=== PATIENT | female | born 1950 | race Caucasian/White ===

== ENCOUNTER 2020-09-13 14:44 | Observation (INO) | payer MEDICARE ==
[2020-09-13] MEDS ORDERED: ONDANSETRON 4 MG/2 ML VIAL IVP PRN (15:30)
[2020-09-13] MEDS ORDERED: NALOXONE 0.4 MG/ML 1 ML VIAL IV PRN (15:30)
[2020-09-13] MEDS ORDERED: MORPHINE SULFATE 2 MG/ML SYRINGE IV PRN (15:30)
--- NOTE | 2020-09-13 15:30 | ED ---
Abdominal Pain HPI - General Chief Complaint: Abdominal Pain Stated Complaint: Abd pain Time Seen by Provider: 09/13/20 14:47 Source: patient, EMS Mode of arrival: EMS Limitations: no limitations - History of Present Illness Initial Comments: Patient is a 69-year-old female with history hypertension, COPD, presenting to the emergency Department as a transfer from [facility]. She states that she woke up early this morning with complaints of right-sided abdominal pain and epigastric pain. She states the pain was very severe and so she went to the ER for evaluation. She did have a bowel movement today, no relief of her symptoms. She denies any fever or chills, no urinary symptoms. She denies any chest pain or shortness of breath. She states she did try some Pepto-Bismol at home with no relief. Patient had some lab work, computed tomography scan and [facility], she was given IV fluids, Flagyl and Levaquin and was transferred here for GI. Currently patient states her pain has increased, 8/10 at this time. She denies any nausea or vomiting. She has no further complaints at this time. Upon arrival to the ER, her vital signs are stable. - Related Data Home Medications Medication Instructions Recorded Confirmed Aspirin [Adult Low Dose Aspirin EC] 81 mg PO DAILY 04/21/16 09/13/20 Fluticasone Nasal [place] [Flonase 1 spray EA NOSTRIL DAILY PRN 04/21/16 09/13/20 Nasal [place]] Multivitamins, Thera [Multivitamin 1 tab PO DAILY 04/21/16 09/13/20 (formulary)] Omeprazole [PriLOSEC] 20 mg PO DAILY 04/21/16 09/13/20 Vits A,C,E/Lutein/Minerals 1 tab PO DAILY 04/21/16 09/13/20 [Ocuvite with Lutein Tablet] Albuterol Sulfate [Ventolin HFA] 2 puff INHALATION RT-QID PRN 09/13/20 09/13/20 Calcium Carbonate/Vitamin D3 1 tab PO DAILY 09/13/20 09/13/20 [Calcium 600-Vit D3 20 Mcg (800 Iu)] Docusate [Colace] 100 mg PO HS 09/13/20 09/13/20 Furosemide [Lasix] 40 mg PO DAILY 09/13/20 09/13/20 Isosorbide Mononitrate ER [Imdur] 30 mg PO DAILY 09/13/20 09/13/20 Levothyroxine Sodium [Synthroid] 75 mcg PO DAILY 09/13/20 09/13/20 Metoprolol Succinate (ER) [Toprol 100 mg PO DAILY 09/13/20 09/13/20 Xl] Simvastatin [Zocor] 20 mg PO HS 09/13/20 09/13/20 amLODIPine [Norvasc] 5 mg PO DAILY 09/13/20 09/13/20 methocarbamoL [Robaxin] 500 mg PO BID 09/13/20 09/13/20 Allergies Allergy/AdvReac Type Severity Reaction Status Date / Time Milk Containing Products Allergy CREATES Verified 09/13/20 15:45 [Dairy] PHLEGM Sulfa (Sulfonamide Allergy Anaphylaxis Verified 09/13/20 15:45 Antibiotics) Review of Systems ROS Statement: Those systems with pertinent positive or pertinent negative responses have been documented in the HPI. ROS Other: All systems not noted in ROS Statement are negative. Past Medical History Past Medical History: Asthma, COPD, Eye Disorder, Hypertension, Pneumonia Additional Past Medical History / Comment(s): Diverticulosis, obesity, neuropathy L shoulder, ALLERGIC rhinitis, chronic back pain, peripheral vascular disease. History of Any Multi-Drug Resistant Organisms: None Reported Past Surgical History: Bowel Resection, Cholecystectomy, Hysterectomy Additional Past Surgical History / Comment(s): R cataract Past Anesthesia/Blood Transfusion Reactions: No Reported Reaction Past Psychological History: No Psychological Hx Reported Smoking Status: Former smoker Past Alcohol Use History: None Reported Past Drug Use History: None Reported - Past Family History Mother Family Medical History: Cancer Additional Family Medical History / Comment(s): stomach cancer General Exam - General Exam Comments Initial Comments: GENERAL: Patient is well-developed and well-nourished. Patient is nontoxic and in mild distress. HEAD: Atraumatic, normocephalic. EYES: Pupils equal round and reactive to light, extraocular movements intact, sclera anicteric, conjunctiva are normal. Eyelids were unremarkable. ENT: TMs normal, nares patent, oropharynx clear without exudates. Moist mucous membranes. NECK: Normal range of motion, supple without lymphadenopathy or JVD. LUNGS: Unlabored respirations. Breath sounds clear to auscultation bilaterally and equal. No wheezes rales or rhonchi. HEART: Regular rate and rhythm without murmurs, rubs or gallops. ABDOMEN: Soft, tender in the right side of the abdomen, epigastric area normoactive bowel sounds. No guarding, no rebound. No masses appreciated. : Deferred MUSCULOSKELETAL: Normal extremities with adequate strength and normal range of motion, no pitting or edema. No clubbing or cyanosis. NEUROLOGICAL: Patient is alert and oriented x 3. Motor and sensory are also intact. Cranial nerves II through XII grossly intact. Symmetrical smile. Normal speech, normal gait. PSYCH: Normal mood, normal affect. SKIN: Warm, Dry, normal turgor, no rashes or lesions noted. Limitations: no limitations Course Vital Signs 09/13/20 14:47 Temperature 98 F Pulse Rate 94 Respiratory 18 Rate Blood Pressure 172/65 O2 Sat by Pulse 95 Oximetry Medical Decision Making - Medical Decision Making Patient is a 69-year-old female with history of hypertension, COPD, presenting as a transfer from [facility]. She presented there with epigastric pain, abdominal pain started suddenly this morning. Her labs revealed mildly elevated WBC and lactate. Urine shows no signs of infection. EKG showed sinus rhythm no acute changes. CT of the abdomen showed diffuse thickening of the ascending colon and hepatic flexure, findings compatible with colitis. Diverticulosis without acute diverticulitis. Patient was given IV fluids, Flagyl and Levaquin. Patient will be admitted for colitis, antibiotics, pain control, GI referral. Patient accepted by Dr. Soni. Case discussed with Dr. Riley. Disposition Clinical Impression: Abdominal pain, Colitis Disposition: ADMITTED IP TO THIS HOSP Condition: Stable Decision Date: 09/13/20 Decision Time: 15:30
[2020-09-13] MEDS ORDERED: MORPHINE SULFATE 4 MG/ML SYRINGE IVP STA (15:34)
[2020-09-13] MEDS: SODIUM CHLORIDE 0.9% 1,000 ML IV SCH (15:45)
[2020-09-13] MEDS: PANTOPRAZOLE 40 MG/10 ML VIAL IV SCH (16:51)
[2020-09-13] MEDS ORDERED: ALBUTEROL NEBULIZED 2.5 MG/3 ML INHALATION PRN (18:06)
[2020-09-13] MEDS ORDERED: HYDROmorphone 0.5 MG/0.5 ML SYRINGE IVP PRN (18:11)
--- NOTE | 2020-09-13 18:45 | HP ---
HISTORY AND PHYSICAL DATE OF SERVICE: 09/13/2020. CHIEF COMPLAINT: Abdominal pain and some nausea, vomiting and abdominal distention. HISTORY OF PRESENT ILLNESS: This 69-year-old women with a past medical history of asthma, COPD, hypertension, history of pneumonia, diverticulosis, history of neuropathy left shoulder, being followed by Dr. Polo in the outpatient setting, who actually woke up this morning with severe nausea, vomiting, and right-sided abdominal pain which started overnight sometime. The patient went to [facility] and CT scan showed extensive colitis of the hepatic flexure and ascending colon and the patient was referred to [facility] and was admitted for further evaluation and treatment. There is no history of fever, rigors or chills. No history of headache, loss of consciousness or seizures at this time. PAST MEDICAL HISTORY: Asthma, COPD, DJD, hypertension, history of pneumonia, diverticulosis. MEDICATIONS: Home medications are: Robaxin 500 mg p.o. b.i.d., Norvasc, Ocuvite, Zocor, Prilosec, multivitamin, Toprol-XL. Synthroid, Imdur, Lasix, Flonase, Colace, calcium with vitamin D, aspirin, Ventolin HFA. ALLERGIES: MILK CONTAINING PRODUCTS and SULFA. FAMILY HISTORY: History of skin cancers, history of stomach cancer in the family. SOCIAL HISTORY: Previous history of smoking. No history of alcohol intake. REVIEW OF SYSTEMS: ENT: No diminished vision. No diminished hearing. CARDIOVASCULAR: No angina. RESPIRATION: No cough or hemoptysis. GI as mentioned earlier. : No dysuria. NERVOUS SYSTEM: No numbness or weakness. ALLERGY/IMMUNOLOGY: No asthma or hayfever. MUSCULOSKELETAL as mentioned earlier. HEMATOLOGY/ONCOLOGY: As mentioned earlier. ENDOCRINE: As mentioned earlier. CONSTITUTIONAL: As mentioned earlier. DERMATOLOGY: Negative. RHEUMATOLOGY negative. PSYCHIATRY as mentioned earlier. PHYSICAL EXAMINATION: Alert and oriented x3. Pulse is 99. Blood pressure 169/65, respiration 18, temperature 98.2, pulse ox 98% on room air. HEENT is conjunctivae normal. NECK: No JVD. CARDIOVASCULAR: S1, S2 muffled. No S3, No S4. RESPIRATORY: Breath sounds diminished in the bases. Scattered rhonchi and crackles. ABDOMEN: Soft, obese mild diffuse tenderness in the right side of the abdomen. No guarding. No rigidity. No rebound tenderness. Pulses diminished. No ascites. No mass palpable. LEGS: No edema, no swelling. NERVOUS SYSTEM: Higher functions as mentioned earlier. Moves all 4 limbs. No focal motor or sensory deficits. LYMPHATICS: No lymph nodes palpable in the neck, axillae or groin. SKIN: No ulcer, no rash and no bleeding. JOINTS: No active deforming arthropathy. LABS: The current labs are awaited. ASSESSMENT: 1. Severe abdominal pain with acute colitis, ascending colon, hepatic flexure. 2. History of asthma. 3. History of chronic obstructive pulmonary disease. 4. History of hypertension. 5. History of pneumonia. 6. History of diverticulosis. 7. History of allergic rhinitis. 8. Chronic back pain. 9. Peripheral vascular disease. 10.History of cholecystectomy. 11.History of bowel resection. 12.History of hysterectomy. 13.Remote history of nicotine dependence. RECOMMENDATIONS/DISCUSSION: In this 69-year-old woman who presented with multiple complex medical issues, we will monitor the patient closely, continue the current medications, management and symptomatic treatment. Resume the home medications, broad-spectrum IV antibiotics. Gastroenterology, surgical evaluation. Prognosis guarded because of multiple complex medical issues. Further recommendations to follow. A copy of dictation is being forwarded to Dr. Polo who is the primary physician. MAMIE / DIMITRIS: [id number] /
[2020-09-13 19:27] LABS: ALT 31 U/L (4-34); AST 35 U/L (14-36); African American GFR (CKD) >90 (>60 ml/min/1.73 sqM); Albumin 4.1 g/dL (3.5-5.0); Alkaline Phosphatase 73 U/L (38-126); Anion Gap 10 mmol/L; Blood Urea Nitrogen 10 mg/dL (7-17); Calcium 8.9 mg/dL (8.4-10.2); Carbon Dioxide 28 mmol/L (22-30); Chloride 102 mmol/L (98-107); Glucose 111 mg/dL (74-99); Non-African American GFR(CKD) >90 (>60 ml/min/1.73 sqM); Sodium 140 mmol/L (137-145); Total Protein 6.5 g/dL (6.3-8.2)
--- NOTE | 2020-09-13 20:04 | XR ---
EXAMINATION: XR chest 1V portable DATE AND TIME: 09/13/2020 7:48 PM CLINICAL INDICATION: PHH; chf, pain abdominal TECHNIQUE: AP upright portable COMPARISON: 04/24/1960 FINDINGS: The overlying soft tissues are prominent, limiting visualization. Lungs appear clear, as seen. The pleural spaces are negative. The cardiac silhouette is not enlarged. The remainder of the mediastinal silhouette is unremarkable. The skeletal structures and soft tissues are negative for acute findings. IMPRESSION: No acute radiographic process, AP upright portable chest radiograph.
[2020-09-13] MEDS: methocarbamoL 500 MG TAB PO SCH (20:57)
[2020-09-13] MEDS: ATORVASTATIN 10 MG TAB PO SCH (20:57)
[2020-09-13 20:58] LABS: Appearance,Urine Clear (Clear); Bilirubin,Urine Negative (Negative); Blood,Urine Small (Negative); Color,Urine Yellow; Glucose,Urine (UA) Negative (Negative); Ketones,Urine Negative (Negative); Leukocyte Esterase,Urine Negative (Negative); Mucus,Urine Rare /hpf; Nitrite,Urine Negative (Negative); Protein,Urine Trace (Negative); RBC,Urine 5 /hpf (0-5); Specific Gravity,Urine 1.038 (1.001-1.035); Squamous Epithelial Cell,Urine <1 /hpf (0-4); Urobilinogen,Urine <2.0 mg/dL (<2.0); WBC,Urine 2 /hpf (0-5)
[2020-09-13] MEDS: HEPARIN SODIUM,PORCINE 5,000 UNIT/ML 1 ML VIAL SQ SCH (20:58)
[2020-09-13] MEDS: ISOSORBIDE MONONITRATE ER 30 MG TAB.ER.24H PO SCH (21:18)
[2020-09-13] MEDS: METOPROLOL SUCCINATE (ER) 100 MG TAB.ER.24H PO SCH (21:18)
[2020-09-13] MEDS: PIPERACILLIN-TAZOBACTAM 3.375 GM in SODIUM CHLORIDE 0.9% 100 ML IVPB SCH (22:10)
[2020-09-14] MEDS ORDERED: diphenhydrAMINE 50 MG/ML 1 ML VIAL IVP PRN (00:34)
[2020-09-14 01:07] LABS: Glucose,Whole Blood 151 mg/dL (75-99)
[2020-09-14] MEDS: PIPERACILLIN-TAZOBACTAM 3.375 GM in SODIUM CHLORIDE 0.9% 100 ML IVPB SCH (04:12)
[2020-09-14] MEDS: LEVOTHYROXINE 75 MCG TAB PO SCH (06:49)
[2020-09-14 06:52] LABS: Basophils % (A) 0 %; Eosinophils # (A) 0.1 k/uL (0-0.7); Eosinophils % (A) 0 %; HCT 38.2 % (34.0-46.0); Lymphocytes % (A) 13 %; MCH 33.8 pg (25.0-35.0); MCHC 34.1 g/dL (31.0-37.0); Mean Platelet Volume 8.6; Monocytes % (A) 6 %; Neutrophils # (A) 12.6 k/uL (1.3-7.7); Neutrophils % (A) 79 %; Platelet Count 160 k/uL (150-450); RBC 3.86 m/uL (3.80-5.40); WBC 15.9 k/uL (3.8-10.6)
[2020-09-14 06:59] LABS: Potassium 3.7 mmol/L (3.5-5.1)
[2020-09-14 07:00] LABS: Calcium 7.9 mg/dL (8.4-10.2)
[2020-09-14] MEDS: PANTOPRAZOLE 40 MG/10 ML VIAL IV SCH (08:38)
[2020-09-14] MEDS: HEPARIN SODIUM,PORCINE 5,000 UNIT/ML 1 ML VIAL SQ SCH ×2 (08:38→20:48)
[2020-09-14] MEDS: ASPIRIN 81 MG PO SCH (08:38)
[2020-09-14] MEDS: methocarbamoL 500 MG TAB PO SCH ×2 (08:42→20:47)
[2020-09-14] MEDS: FUROSEMIDE 40 MG TAB PO SCH (08:43)
[2020-09-14] MEDS: HYDROcodone/APAP 5-325MG 1 EACH TAB PO PRN ×2 (09:16→15:53)
--- NOTE | 2020-09-14 12:34 | P.GSCN ---
History of Present Illness Consult date: 09/14/20 History of present illness: CHIEF COMPLAINT: Abdominal pain HISTORY OF PRESENT ILLNESS: This is a 69-year-old female with a known history of hypertension, COPD, peripheral arterial disease and diverticulosis. Patient also has a surgical history of cholecystectomy, hysterectomy and colostomy placement after Dr. varela bowel perforation with colostomy reversal. Patient had 2 presented to [facility] with epigastric and right upper quadrant abdominal pain. She reports that the pain came on suddenly around 4:00 in the morning yesterday. She reports the pain is severe rated 8 out of 10. Patient reports having chills and feeling cold. She has had some diarrhea and reports that the stools have been dark possibly black in color. She denies any nausea or vomiting. She had a computed tomography scan completed at [facility] which had showed diffuse thickening in the ascending colon and hepatic flexure findings compatible with colitis. Patient apparently has had reaction to the antibiotic Zosyn and Levaquin that were started for colitis. She reports that her pain is controlled. She is currently on a clear liquid diet. White count elevated is elevated. Patient reports that her last EGD and colonoscopy were several years ago. PAST MEDICAL HISTORY: See list. PAST SURGICAL HISTORY: See list. MEDICATIONS: See list. ALLERGIES: See list. SOCIAL HISTORY: No illicit drug use. REVIEW OF SYSTEMS: CONSTITUTIONAL: Denies fever or chills. HEENT: Denies blurred vision, vision changes, or eye pain. Denies hemoptysis CARDIOVASCULAR: Denies chest pain or pressure. RESPIRATORY: No shortness of breath. GASTROINTESTINAL: See HPI for pertinent findings HEMATOLOGIC: Denies bleeding disorders. GENITOURINARY: Denies any blood in urine or increased urinary frequency. SKIN: Denies pruitis. Denies rash. PHYSICAL EXAM: VITAL SIGNS: Reviewed GENERAL: Well-developed in no acute distress. HEENT: No sclera icterus. Extraocular movements grossly intact. Moist buccal mucosa. Head is atraumatic, normocephalic. No nasal drainage. ABDOMEN: Soft. Nondistended. Tenderness in the epigastric and right upper quadrant area NEUROLOGIC: Alert and oriented. Cranial nerves II through XII grossly intact. LABORATORY DATA: WBC 15.9 Hgb 13.0 platelets 160 creatinine 1.10 lactic 1.7 LFTs normal UA negative for infection Covid not detected IMAGING: computed tomography scan completed at [facility] which had showed diffuse thickening in the ascending colon and hepatic flexure findings compatible with colitis ASSESSMENT: 1. Abdominal pain 2. Colitis with diffuse thickening in the ascending colon and hepatic flexure noted on CAT scan 3. Prior history of cholecystectomy PLAN: -Agree with infectious disease consult for antibiotic recommendations due to patient's ALLERGIES -Continue with IV fluids -Continue pain medication as needed -continue supportive care -no surgical intervention planned Thank you for this consultation Physician Hand Outside Cutter note has been reviewed by physician. Signing provider agrees with the documented findings, assessment, and plan of care. Past Medical History Past Medical History: Asthma, COPD, Eye Disorder, Hypertension, Pneumonia Additional Past Medical History / Comment(s): Diverticulosis, obesity, neuropathy L shoulder, ALLERGIC rhinitis, chronic back pain, peripheral vascular disease. History of Any Multi-Drug Resistant Organisms: None Reported Past Surgical History: Bowel Resection, Cholecystectomy, Hysterectomy Additional Past Surgical History / Comment(s): R cataract Past Anesthesia/Blood Transfusion Reactions: No Reported Reaction Past Psychological History: No Psychological Hx Reported Smoking Status: Former smoker Past Alcohol Use History: None Reported Additional Past Alcohol Use History / Comment(s): QUIT SMOKING 6 YRS AGO Past Drug Use History: None Reported - Past Family History Mother Family Medical History: Cancer Additional Family Medical History / Comment(s): stomach cancer Father Family Medical History: Coronary Artery Disease (CAD), Musculoskeletal Disorder Medications and Allergies Home Medications Medication Instructions Recorded Confirmed Type Aspirin [Adult Low Dose Aspirin EC] 81 mg PO DAILY 04/21/16 09/13/20 History Fluticasone Nasal [place] [Flonase 1 spray EA NOSTRIL DAILY PRN 04/21/16 09/13/20 History Nasal [place]] Multivitamins, Thera [Multivitamin 1 tab PO DAILY 04/21/16 09/13/20 History (formulary)] Omeprazole [PriLOSEC] 20 mg PO DAILY 04/21/16 09/13/20 History Vits A,C,E/Lutein/Minerals 1 tab PO DAILY 04/21/16 09/13/20 History [Ocuvite with Lutein Tablet] Albuterol Sulfate [Ventolin HFA] 2 puff INHALATION RT-QID PRN 09/13/20 09/13/20 History Calcium Carbonate/Vitamin D3 1 tab PO DAILY 09/13/20 09/13/20 History [Calcium 600-Vit D3 20 Mcg (800 Iu)] Docusate [Colace] 100 mg PO HS 09/13/20 09/13/20 History Furosemide [Lasix] 40 mg PO DAILY 09/13/20 09/13/20 History Isosorbide Mononitrate ER [Imdur] 30 mg PO DAILY 09/13/20 09/13/20 History Levothyroxine Sodium [Synthroid] 75 mcg PO DAILY 09/13/20 09/13/20 History Metoprolol Succinate (ER) [Toprol 100 mg PO DAILY 09/13/20 09/13/20 History Xl] Simvastatin [Zocor] 20 mg PO HS 09/13/20 09/13/20 History amLODIPine [Norvasc] 5 mg PO DAILY 09/13/20 09/13/20 History methocarbamoL [Robaxin] 500 mg PO BID 09/13/20 09/13/20 History Allergies Allergy/AdvReac Type Severity Reaction Status Date / Time levofloxacin [From Levaquin] Allergy Rash/Hives Verified 09/14/20 09:42 metronidazole [From Flagyl] Allergy Rash/Hives Verified 09/14/20 09:42 Milk Containing Products Allergy CREATES Verified 09/13/20 15:45 [Dairy] PHLEGM piperacillin [From Zosyn] Allergy Rash/Hives Verified 09/14/20 01:29 Sulfa (Sulfonamide Allergy Anaphylaxis Verified 09/13/20 15:45 Antibiotics) tazobactam [From Zosyn] Allergy Rash/Hives Verified 09/14/20 01:29 Surgical - Exam Vital Signs Temp Pulse Resp BP Pulse Ox 98 F 94 18 172/65 95 09/13/20 14:47 09/13/20 14:47 09/13/20 14:47 09/13/20 14:47 09/13/20 14:47 Results - Labs 09/14/20 05:59 09/14/20 05:59 Abnormal Lab Results - Last 24 Hours (Table) 09/13/20 09/13/20 09/14/20 Range/Units 18:58 20:45 01:01 WBC (3.8-10.6) k/uL Neutrophils # (1.3-7.7) k/uL Sodium (137-145) mmol/L BUN (7-17) mg/dL Creatinine (0.52-1.04) mg/dL Glucose 111 H (74-99) mg/dL POC Glucose (mg/dL) 151 H (75-99) mg/dL Calcium (8.4-10.2) mg/dL Ur Specific [place] 1.038 H (1.001-1.035) Urine Protein Trace H (Negative) Urine Blood Small H (Negative) Urine Mucus Rare H (None) /hpf 09/14/20 09/14/20 Range/Units 05:59 05:59 WBC 15.9 H (3.8-10.6) k/uL Neutrophils # 12.6 H (1.3-7.7) k/uL Sodium 135 L (137-145) mmol/L BUN 18 H (7-17) mg/dL Creatinine 1.10 H (0.52-1.04) mg/dL Glucose 134 H (74-99) mg/dL POC Glucose (mg/dL) (75-99) mg/dL Calcium 7.9 L (8.4-10.2) mg/dL Ur Specific [place] (1.001-1.035) Urine Protein (Negative) Urine Blood (Negative) Urine Mucus (None) /hpf Diabetes panel 09/13/20 09/14/20 Range/Units 18:58 05:59 Sodium 140 135 L (137-145) mmol/L Potassium 4.0 3.7 (3.5-5.1) mmol/L Chloride 102 104 (98-107) mmol/L Carbon Dioxide 28 24 (22-30) mmol/L BUN 10 18 H (7-17) mg/dL Creatinine 0.63 1.10 H (0.52-1.04) mg/dL Glucose 111 H 134 H (74-99) mg/dL Calcium 8.9 7.9 L (8.4-10.2) mg/dL AST 35 (14-36) U/L ALT 31 (4-34) U/L Alkaline Phosphatase 73 (38-126) U/L Total Protein 6.5 (6.3-8.2) g/dL Albumin 4.1 (3.5-5.0) g/dL Calcium panel 09/13/20 09/14/20 Range/Units 18:58 05:59 Calcium 8.9 7.9 L (8.4-10.2) mg/dL Albumin 4.1 (3.5-5.0) g/dL Pituitary panel 09/13/20 09/14/20 Range/Units 18:58 05:59 Sodium 140 135 L (137-145) mmol/L Potassium 4.0 3.7 (3.5-5.1) mmol/L Chloride 102 104 (98-107) mmol/L Carbon Dioxide 28 24 (22-30) mmol/L BUN 10 18 H (7-17) mg/dL Creatinine 0.63 1.10 H (0.52-1.04) mg/dL Glucose 111 H 134 H (74-99) mg/dL Calcium 8.9 7.9 L (8.4-10.2) mg/dL Adrenal panel 09/13/20 09/14/20 Range/Units 18:58 05:59 Sodium 140 135 L (137-145) mmol/L Potassium 4.0 3.7 (3.5-5.1) mmol/L Chloride 102 104 (98-107) mmol/L Carbon Dioxide 28 24 (22-30) mmol/L BUN 10 18 H (7-17) mg/dL Creatinine 0.63 1.10 H (0.52-1.04) mg/dL Glucose 111 H 134 H (74-99) mg/dL Calcium 8.9 7.9 L (8.4-10.2) mg/dL Total Bilirubin 1.0 (0.2-1.3) mg/dL AST 35 (14-36) U/L ALT 31 (4-34) U/L Alkaline Phosphatase 73 (38-126) U/L Total Protein 6.5 (6.3-8.2) g/dL Albumin 4.1 (3.5-5.0) g/dL
[2020-09-14] MEDS: amLODIPine 5 MG TAB PO SCH (15:50)
[2020-09-14] MEDS: ISOSORBIDE MONONITRATE ER 30 MG TAB.ER.24H PO SCH (15:50)
[2020-09-14] MEDS: METOPROLOL SUCCINATE (ER) 100 MG TAB.ER.24H PO SCH (15:50)
[2020-09-14] MEDS: SODIUM CHLORIDE 0.9% 1,000 ML IV SCH ×2 (15:56→20:10)
[2020-09-14] MEDS: metroNIDAZOLE 500 MG TAB PO SCH ×2 (15:59→20:48)
--- NOTE | 2020-09-14 17:08 | PN ---
PROGRESS NOTE DATE OF SERVICE: 09/14/2020. This 69-year-old woman who was admitted with severe abdominal pain with acute colitis and ascending colitis including the hepatic flexure is being closely monitored. Patient has significant diarrhea. Surgery is following the patient closely. The white count is elevated to 15.3. Patient on broad spectrum IV antibiotics. C diff is negative at this time. PAST MEDICAL HISTORY: Reviewed. REVIEW OF SYSTEMS: CARDIOVASCULAR SYSTEM: No angina or palpitations. RESPIRATION: As mentioned earlier. GI as mentioned earlier. : No dysuria. NERVOUS SYSTEM: No numbness or weakness. MEDICATIONS: Current medications are reviewed and include: [place]. Ventolin. Norvasc, aspirin, Lipitor, Rocephin, Lasix, heparin, Imdur. Doses reviewed. PHYSICAL EXAMINATION: Alert and oriented times three. Pulse 60, blood pressure 139/70, respiration 16. Temperature 97.5, pulse ox 94% on room air. HEENT: Conjunctivae normal. NECK: No JVD. CARDIOVASCULAR: S1, S2 muffled. RESPIRATION: Breath sounds diminished in the bases. A few rhonchi. No crackles. ABDOMEN: Soft. Mild diffuse tenderness present, especially in the right upper quadrant, and right side of the abdomen and epigastrium. No guarding. No rigidity. No ascites. Bowel sounds present. LEGS: No edema. No swelling. NERVOUS SYSTEM: No focal deficits. LAB: WBC 15.9, hemoglobin 13, sodium 130, potassium 3.7, creatinine is 1.10 and calcium is 7.9. ASSESSMENT: 1. Severe abdominal pain with acute ascending colitis, hepatic flexure. 2. History of asthma. 3. Chronic obstructive pulmonary disease. 4. Hypertension. 5. History of pneumonia. 6. History of diverticulosis. 7. History allergic rhinitis. 8. Chronic back pain. 9. Peripheral vascular disease. 10.History of cholecystectomy. 11.History of bowel resection. 12.History of hysterectomy. 13.Remote history of nicotine dependence. RECOMMENDATIONS AND DISCUSSION: Recommend to continue current management and symptomatic treatment. Otherwise, at this time, I recommend continue with current medication. Monitor closely. Creatinine is 1.10. Repeat labs will be ordered. Avoid nephrotoxic medications and further recommendations to follow. MMODL / IJN: [id number] / MTDD
[2020-09-14] MEDS: ATORVASTATIN 10 MG TAB PO SCH (20:48)
--- NOTE | 2020-09-15 05:43 | CONS ---
CONSULTATION DATE OF SERVICE: 09/14/2020 REASON FOR STAY: Colitis and multiple antibiotic allergies. HISTORY OF PRESENT ILLNESS: The patient is a 69-year-old female with a past medical history of hypertension, COPD, peripheral neuropathy, diverticulosis in this patient presenting to the hospital with abdominal pain. The patient's pain started at 4 in the morning and woke her up from sleep. Patient reports her pain to be around 8/10 with no radiation and it has been more of a dull aching and at times squeezing in quality with associated nausea but no vomiting. Denies any diarrhea, rather she did have constipation. With these symptoms, the patient was evaluated at [facility] where the patient initially presented. The patient did have a CT of abdomen and pelvis with evidence of ascending colon colitis with some involvement of the hepatic flexure. The patient also had an elevated white count. Lactic acid was 2.2. The patient was started on Zosyn and developed a rash to it and subsequently has been transferred to [facility] for further evaluation. After she was given a dose of Levaquin she did have some warmth, which has been discontinued because of these multiple antibiotic allergies. Infectious Disease has been consulted for further management of antibiotic therapy. REVIEW OF SYSTEMS: Positive points have been mentioned in HPI. Rest of the systems are negative. PAST MEDICAL HISTORY: Asthma, COPD, hypertension, pneumonia, diverticulosis, peripheral arterial disease, chronic back pain, peripheral vascular disease. PAST SURGICAL HISTORY: Bowel resection, cholecystectomy, hysterectomy, cataract surgery. SOCIAL HISTORY: Remote history of smoking. No drinking or drug use. FAMILY HISTORY: Mother with history of stomach cancer. ALLERGIES: To LEVAQUIN, PIPERACILLIN, SULFA AND FLAGYL. MEDICATIONS: Currently the patient is on hydrocodone, Ventolin, Norvasc, aspirin, Lipitor, Benadryl, Lasix, heparin, Dilaudid, Toprol-XL, Narcan, Zofran, Protonix and IV fluid. PHYSICAL EXAMINATION: VITAL SIGNS: Blood pressure 124/63, pulse of 71, temperature 98.2. She is 92% on room air. GENERAL DESCRIPTION: Patient is a middle-aged female lying in bed in no distress. No tachypnea or accessory muscles of respiration use. HEENT: Examination shows slight pallor. No scleral icterus. Oral mucous membrane is dry. NECK: Trachea central. No thyromegaly. LUNGS: Unlabored breathing, clear to auscultation anteriorly. No wheeze or crackles. HEART: S1, S2. Regular rate and rhythm. ABDOMEN: Soft, no tenderness. Right upper quadrant has no guarding or rigidity. No organomegaly. EXTREMITIES: No edema of the feet. SKIN: No rash or mass palpable. NEUROLOGICAL: Patient is awake, alert, oriented. Mood and affect normal. LABS: Hemoglobin 13.1, white count 15.9, BUN of 18, creatinine is 1.10. Urine is negative. Stool for C difficile is negative. Stool culture pending. CT report as mentioned above. DIAGNOSTIC IMPRESSION: 1. Patient admitted to the hospital with acute pain, abdominal, with some nausea but no vomiting. Did not have any fever. Did however have elevated white count and mildly elevated lactic acid. Concern for possible ischemic colitis versus infectious colitis and need to cover for the enteric gram-negative, both aerobes and anaerobes. 2. Patient who does have multiple antibiotic allergies that will limit the number of antibiotics safe to use, however, clinically doubt the patient is truly allergic to Flagyl, as it is very uncommon to have an allergic reaction with Flagyl. PLAN: 1. We will start the patient on Rocephin 2 grams daily and Flagyl 500 mg p.o. q.8 hours. 2. Stool studies. 3. May benefit from colonoscopy and biopsy to rule out ischemic colitis. 4. We will follow on clinical condition and culture to further adjust medication if needed. Thank you for this consultation. Will follow this patient along with you. MMODL / IJN: [id number] / MTDXu
[2020-09-15] MEDS: LEVOTHYROXINE 75 MCG TAB PO SCH (06:30)
[2020-09-15] MEDS: PANTOPRAZOLE 40 MG TABLET PO SCH (06:30)
[2020-09-15] MEDS: SODIUM CHLORIDE 0.9% 1,000 ML IV SCH ×2 (06:30→13:57)
--- NOTE | 2020-09-15 08:33 | P.CONS ---
History of Present Illness - Reason for Consult Consult date: 09/14/20 Colitis Requesting physician: Rena Soni - Chief Complaint Abdominal pain - History of Present Illness 69-year-old female with multiple medical comorbidities including COPD, hypertension, peripheral arterial disease, diverticulosis, prior bowel resection approximately 20 years ago due to complications from surgery who presented to the hospital due to complaints of abdominal pain. She reported pain in the periumbilical and right lower quadrant of her abdomen. The pain was sharp and intense with associated chills. The patient took Pepto-Bismol with no improvement in her pain. She denied any blood in her stool but does report dark loose bowel movements. She believes her last colonoscopy was 5 years ago and normal except for polyps. Computed tomography scan which was performed in evaluation was significant for diffuse thickening through the ascending colon and hepatic flexure compatible with colitis, diverticulosis angiomyolipoma of the right adrenal and a nonobstructing left upper pole punctate renal stone was also noted. Currently the patient is seen lying in bed with no acute complaints. She still continues to have some abdominal pain, however this is improved since presentation. Review of Systems REVIEW OF SYSTEMS: CONSTITUTIONAL: Denies any fevers, weight change or fatigue but the patient did have chills in association with her abdominal pain. CARDIOVASCULAR: Denies any chest pain, palpitations high or low blood pressures RESPIRATORY: Denies any shortness of breath, hemoptysis or cough, she does have a known history of COPD. GENITOURINARY: No dysuria or hematuria. MUSCULOSKELETAL: No weakness reported. SKIN: Denies any new rashes or lesions, jaundice or pallor. PSYCHIATRIC: Denies any depression or anxiety. NEUROLOGY: Denies headache, denies any new focal deficits. EARS/NOSE/THROAT: No recent hearing change, congestion, nasal discharge or sore throat. EYES: No pain in eyes, discharge or change in vision. GASTROINTESTINAL: As per HPI. Past Medical History Past Medical History: Asthma, COPD, Eye Disorder, Hypertension, Pneumonia Additional Past Medical History / Comment(s): Diverticulosis, obesity, neuropathy L shoulder, ALLERGIC rhinitis, chronic back pain, peripheral vascular disease. History of Any Multi-Drug Resistant Organisms: None Reported Past Surgical History: Bowel Resection, Cholecystectomy, Hysterectomy Additional Past Surgical History / Comment(s): R cataract Past Anesthesia/Blood Transfusion Reactions: No Reported Reaction Past Psychological History: No Psychological Hx Reported Smoking Status: Former smoker Past Alcohol Use History: None Reported Additional Past Alcohol Use History / Comment(s): QUIT SMOKING 6 YRS AGO Past Drug Use History: None Reported - Past Family History Mother Family Medical History: Cancer Additional Family Medical History / Comment(s): stomach cancer Father Family Medical History: Coronary Artery Disease (CAD), Musculoskeletal Disorder Medications and Allergies Home Medications Medication Instructions Recorded Confirmed Type Aspirin [Adult Low Dose Aspirin EC] 81 mg PO DAILY 04/21/16 09/13/20 History Fluticasone Nasal [place] [Flonase 1 spray EA NOSTRIL DAILY PRN 04/21/16 09/13/20 History Nasal Sidney] Multivitamins, Thera [Multivitamin 1 tab PO DAILY 04/21/16 09/13/20 History (formulary)] Omeprazole [PriLOSEC] 20 mg PO DAILY 04/21/16 09/13/20 History Vits A,C,E/Lutein/Minerals 1 tab PO DAILY 04/21/16 09/13/20 History [Ocuvite with Lutein Tablet] Albuterol Sulfate [Ventolin HFA] 2 puff INHALATION RT-QID PRN 09/13/20 09/13/20 History Calcium Carbonate/Vitamin D3 1 tab PO DAILY 09/13/20 09/13/20 History [Calcium 600-Vit D3 20 Mcg (800 Iu)] Docusate [Colace] 100 mg PO HS 09/13/20 09/13/20 History Furosemide [Lasix] 40 mg PO DAILY 09/13/20 09/13/20 History Isosorbide Mononitrate ER [Imdur] 30 mg PO DAILY 09/13/20 09/13/20 History Levothyroxine Sodium [Synthroid] 75 mcg PO DAILY 09/13/20 09/13/20 History Metoprolol Succinate (ER) [Toprol 100 mg PO DAILY 09/13/20 09/13/20 History Xl] Simvastatin [Zocor] 20 mg PO HS 09/13/20 09/13/20 History amLODIPine [Norvasc] 5 mg PO DAILY 09/13/20 09/13/20 History methocarbamoL [Robaxin] 500 mg PO BID 09/13/20 09/13/20 History Allergies Allergy/AdvReac Type Severity Reaction Status Date / Time levofloxacin [From Levaquin] Allergy Rash/Hives Verified 09/14/20 09:42 Milk Containing Products Allergy CREATES Verified 09/13/20 15:45 [Dairy] PHLEGM piperacillin [From Zosyn] Allergy Rash/Hives Verified 09/14/20 01:29 Sulfa (Sulfonamide Allergy Anaphylaxis Verified 09/13/20 15:45 Antibiotics) tazobactam [From Zosyn] Allergy Rash/Hives Verified 09/14/20 01:29 metronidazole [From Flagyl] AdvReac Mild Rash/Hives Verified 09/14/20 18:51 Physical Exam Vitals: Vital Signs Temp Pulse Pulse Resp BP BP BP 09/14/20 12:07 97.5 F L 60 16 139/71 09/14/20 08:12 98.1 F 64 20 104/50 09/14/20 02:18 97.9 F 74 16 122/68 09/14/20 01:05 84 09/14/20 01:00 80 09/14/20 00:30 98.1 F 97 20 145/66 09/13/20 21:05 20 09/13/20 20:05 98.1 F 111 H 18 147/51 09/13/20 17:10 98.2 F 99 18 168/65 09/13/20 14:47 98 F 94 18 172/65 Pulse Ox 09/14/20 12:07 95 09/14/20 08:12 94 L 09/14/20 02:18 94 L 09/14/20 01:05 09/14/20 01:00 09/14/20 00:30 88 L 09/13/20 21:05 09/13/20 20:05 94 L 09/13/20 17:10 98 09/13/20 14:47 95 Intake and Output 09/13/20 09/14/20 09/14/20 22:59 06:59 14:59 Intake Total 1125 Balance 1125 Intake: Intake, IV Titration 725 Amount Piperacillin-Tazobactam 3 50 .375 gm In Sodium Chloride 0.9% 100 ml @ 25 mls/hr IVPB Q8H BERNY Rx#: [id number] Sodium Chloride 0.9% 1, 675 000 ml @ 75 mls/hr IV . [id number] BERNY Rx#:[id number] Oral 400 Other: # Voids 1 1 1 # Bowel Movements 1 Weight 94.347 kg On physical examination, patient appears comfortable in no apparent distress. HEAD: Normocephalic, atraumatic. EYES: No scleral icterus. No conjunctival injection. MOUTH: No lesions, tongue midline. NECK: Trachea midline, no gross abnormalities. CHEST: Decreased air entry in all yoo. HEART: S1-S2 appreciated. ABDOMEN: Soft, obese, mildly tender to palpation in the right and left lower quadrant of her abdomen. Bowel sounds are positive. No organomegaly. No guarding or rigidity. EXTREMITIES: No pedal edema. SKIN: No rashes, no jaundice. NEUROLOGIC: Alert and oriented x3. No focal deficits. Results CBC & Chem 7: 09/14/20 05:59 09/14/20 05:59 Labs: Abnormal Lab Results - Last 24 Hours (Table) 09/13/20 09/13/20 09/14/20 Range/Units 18:58 20:45 01:01 WBC (3.8-10.6) k/uL Neutrophils # (1.3-7.7) k/uL Sodium (137-145) mmol/L BUN (7-17) mg/dL Creatinine (0.52-1.04) mg/dL Glucose 111 H (74-99) mg/dL POC Glucose (mg/dL) 151 H (75-99) mg/dL Calcium (8.4-10.2) mg/dL Ur Specific Desmet 1.038 H (1.001-1.035) Urine Protein Trace H (Negative) Urine Blood Small H (Negative) Urine Mucus Rare H (None) /hpf 09/14/20 09/14/20 Range/Units 05:59 05:59 WBC 15.9 H (3.8-10.6) k/uL Neutrophils # 12.6 H (1.3-7.7) k/uL Sodium 135 L (137-145) mmol/L BUN 18 H (7-17) mg/dL Creatinine 1.10 H (0.52-1.04) mg/dL Glucose 134 H (74-99) mg/dL POC Glucose (mg/dL) (75-99) mg/dL Calcium 7.9 L (8.4-10.2) mg/dL Ur Specific Desmet (1.001-1.035) Urine Protein (Negative) Urine Blood (Negative) Urine Mucus (None) /hpf CT scan - abdomen: report reviewed (Computed tomography scan which was performed in evaluation was significant for diffuse thickening through the ascending colon and hepatic flexure compatible with colitis, diverticulosis angiomyolipoma of the right adrenal and a nonobstructing left upper pole punctate renal stone was also noted. ) Assessment and Plan (1) Colitis Narrative/Plan: 69-year-old female with multiple medical comorbidities who presented to the hospital with complaints of abdominal pain. CT imaging performed in evaluation and significant for right-sided colitis. The patient is receiving antibiotic therapy. She believes her last colonoscopy was 5 years ago and within normal limits except for polypectomy at that time. Unclear etiology, suspicion is for ischemic colitis with differential also including infectious process and inflammatory process less likely given the acuity of symptoms. Current Visit: Yes Status: Acute Code(s): K52.9 - NONINFECTIVE GASTROENTERITIS AND COLITIS, UNSPECIFIED SNOMED Code(s): 26905227 (2) Abdominal pain Current Visit: Yes Status: Acute Code(s): R10.9 - UNSPECIFIED ABDOMINAL PAIN SNOMED Code(s): 34946076 Plan: Supportive care Clear liquid diet Continue to monitor CBC, BMP, LFTs Continue broad-spectrum antibiotic therapy with ceftriaxone and Flagyl therapy and Infectious disease and surgical service consulted to see the patient No plans for endoscopic evaluation at this time Would recommend colonoscopy in 4-6 weeks to check for healing in the setting of suspected ischemic colitis and to rule out other etiology of findings Thank you for allowing us to participate in the care of the patient we will continue to follow
[2020-09-15] MEDS: metroNIDAZOLE 500 MG TAB PO SCH ×3 (09:07→23:23)
[2020-09-15] MEDS: ASPIRIN 81 MG PO SCH (09:08)
[2020-09-15] MEDS: ISOSORBIDE MONONITRATE ER 30 MG TAB.ER.24H PO SCH (09:08)
[2020-09-15] MEDS: FUROSEMIDE 40 MG TAB PO SCH (09:08)
[2020-09-15] MEDS: methocarbamoL 500 MG TAB PO SCH (09:08)
[2020-09-15] MEDS: amLODIPine 5 MG TAB PO SCH (09:08)
[2020-09-15] MEDS: METOPROLOL SUCCINATE (ER) 100 MG TAB.ER.24H PO SCH (09:09)
[2020-09-15] MEDS: HEPARIN SODIUM,PORCINE 5,000 UNIT/ML 1 ML VIAL SQ SCH ×2 (09:09→23:23)
[2020-09-15 10:01] LABS: Basophils % (A) 1 %; Calcium 7.9 mg/dL (8.4-10.2); Eosinophils # (A) 0.1 k/uL (0-0.7); Eosinophils % (A) 2 %; HCT 35.6 % (34.0-46.0); HGB 11.9 gm/dL (11.4-16.0); Lymphocytes # (A) 1.8 k/uL (1.0-4.8); Lymphocytes % (A) 26 %; MCH 32.4 pg (25.0-35.0); MCHC 33.5 g/dL (31.0-37.0); MCV 96.7 fL (80.0-100.0); Mean Platelet Volume 8.4; Monocytes # (A) 0.4 k/uL (0-1.0); Monocytes % (A) 6 %; Neutrophils # (A) 4.4 k/uL (1.3-7.7); Neutrophils % (A) 63 %; Platelet Count 137 k/uL (150-450); Potassium 3.4 mmol/L (3.5-5.1); RBC 3.68 m/uL (3.80-5.40); RDW 12.9 % (11.5-15.5)
--- NOTE | 2020-09-15 12:05 | P.PN ---
Progress Note - Text Progress Note Date: 09/15/20 The patient feels better. Her pain is slightly improved. On exam vital signs are stable. Abdomen soft. Resolving right-sided colitis. Patient continues have supportive care
--- NOTE | 2020-09-15 17:09 | PN ---
PROGRESS NOTE DATE OF SERVICE: 09/15/2020 INTERVAL HISTORY: This is a 69-year-old woman who was admitted with severe abdominal pain with diffuse colitis. The patient also was on IV antibiotics. Patient also has some multiple antibiotic allergies. The patient is started on Rocephin and Flagyl at this time. PAST MEDICAL HISTORY: Reviewed. REVIEW OF SYMPTOMS: CARDIOVASCULAR: No angina. RESPIRATORY: As mentioned earlier. GI: As mentioned earlier. : No dysuria. NERVOUS SYSTEM: No numbness or weakness. ALLERGY/IMMUNOLOGY: No asthma or hayfever. CURRENT MEDICATIONS: Reviewed and include Winston, Norvasc, aspirin, Lipitor, Rocephin, Benadryl, Lasix. Doses reviewed. PHYSICAL EXAM: GENERAL: Patient is alert and oriented times three. VITAL SIGNS: Pulse 67, blood pressure 126/81, respirations 18, temperature 98.1, pulse ox 97% on room air. HEENT: Conjunctivae normal. NECK: No jugular venous distention. No carotid bruits. No lymph node enlargement. RESPIRATORY: Breath sounds diminished at the bases. A few scattered rhonchi. HEART: S1 and S2, muffled. ABDOMEN: Soft, diffuse tenderness especially on the right side. EXTREMITIES: No edema, no swelling. NERVOUS: No focal deficits. LABS: WBC 7, hemoglobin is 11.8, sodium 130, potassium 3.4, calcium is 7.9. ASSESSMENT: 1. Acute abdominal pain with acute ascending colitis and hepatic flexure colitis. 2. History of asthma. 3. Chronic obstructive pulmonary disease. 4. Hypokalemia. 5. Hypertension. 6. History of pneumonia. 7. History of diverticulitis. 8. History of allergic rhinitis. 9. Chronic back pain and degenerative joint disease. 10.Peripheral vascular disease. 11.History of cholecystectomy. 12.History of bowel resection. 13.History of hysterectomy. 14.Remote history of nicotine dependence. RECOMMENDATIONS AND DISCUSSION: Recommend to continue current medications, monitoring and symptomatic treatment. Otherwise I would recommend continue with broad-spectrum IV antibiotics. The patient is on Rocephin and Flagyl. Prognosis guarded. Further recommendations to follow. MMODL / IJN: [id number] /
[2020-09-15] MEDS ORDERED: IOPAMIDOL CONTRAST (ORAL USE) VIAL PO PRN (18:27)
--- NOTE | 2020-09-15 22:00 | CT ---
EXAMINATION TYPE: CT angio chest DATE OF EXAM: 09/15/2020 COMPARISON: 01/01/2012 HISTORY: Elevated d-dimer. CT DLP: 480.6 mGycm Automated exposure control for dose reduction was used. CONTRAST: Performed with IV Contrast, patient injected with 100 mL of Isovue 370. Images obtained from the thoracic inlet to the diaphragm with IV contrast and 3-D post processed imag es. There is mild subsegmental atelectasis at the posterior lung bases. There is no pleural effusion. The re is no evidence of a pulmonary mass. There is no pericardial effusion. Thoracic aorta is atheromato us. Ascending aorta measures 3.6 cm. There is variable plaque formation in the thoracic aorta. There is coronary artery calcification. There is a few paratracheal lymph nodes that measure up to 1.5 cm. There is no evidence of filling defect in the pulmonary arteries. The thoracic vertebra have normal alignment. There is no compression fracture. I see no bony destruct kevin process. The sternum is intact. There is no evidence of a rib fracture. IMPRESSION: No evidence of pulmonary embolism. Mild subsegmental atelectasis at the lung bases. There is clearing of the airspace infiltrate and pleural fluid compared to old exam. There is clearin g of the small pericardial effusion. There is fatty infiltration of the liver unchanged. There are few mediastinal lymph nodes of doubtful significance and not significantly changed.
--- NOTE | 2020-09-15 22:07 | CT ---
EXAMINATION TYPE: CT abdomen pelvis w con DATE OF EXAM: 09/15/2020 COMPARISON: 09/13/2020 HISTORY: Diarrhea. CT DLP: 1369.2 mGycm Automated exposure control for dose reduction was used. CONTRAST: Performed with IV Contrast, patient injected with mL of Isovue 370. Images obtained from the diaphragm to the floor the pelvis with oral and IV contrast. Lung bases show subsegmental atelectasis in the left lower lobe. Unchanged. There is no pleural effus ion. Heart appears normal. There is no pericardial effusion. There is fatty infiltration of the liver . There are clips from cholecystectomy. Spleen is intact. Stomach is intact. There is no pancreatic m ass. There is no adrenal mass. Kidneys show satisfactory contrast opacification. There is no hydronephrosi s. Ureters are not dilated. Delayed images show normal renal excretion. There is no retroperitoneal a denopathy. There is mild atheromatous change in the lower abdominal aorta. 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 There is no evidence of a pelvic mass. Bladder distends smoothly. There is small amount of fluid in the pelvis. There is no sign of free air. There is wall thickening of the hepatic flexure of the colon. There is mild fat stranding around the hepatic flexure. There is normal alignment of the lumbar vertebra. There is no compression fracture. Bony pelvis is in tact. Hip joints are intact. There is no evidence of a bowel obstruction. There is oral contrast exte nding down to the rectum. There is no mesenteric edema. There is hysterectomy. IMPRESSION: Wall thickening of the hepatic flexure of the colon with some surrounding edema which appears worse t gonzalez recent exam and consistent with colitis. No free air. Mild subsegmental atelectasis at the left lung base unchanged. Atherosclerotic vascular disease. Ther e is small amount of free fluid in the cul-de-sac which is new compared to recent exam. There is sigm oid diverticulosis without diverticulitis.
[2020-09-15] MEDS: ATORVASTATIN 10 MG TAB PO SCH (23:23)
[2020-09-16] MEDS: methocarbamoL 500 MG TAB PO SCH ×3 (01:36→21:30)
[2020-09-16] MEDS: PANTOPRAZOLE 40 MG TABLET PO SCH (06:21)
[2020-09-16] MEDS: LEVOTHYROXINE 75 MCG TAB PO SCH (06:21)
[2020-09-16] MEDS: SODIUM CHLORIDE 0.9% 1,000 ML IV SCH ×2 (06:21→14:12)
[2020-09-16 06:46] LABS: Basophils % (A) 0 %; Eosinophils # (A) 0.2 k/uL (0-0.7); Eosinophils % (A) 4 %; HCT 38.5 % (34.0-46.0); HGB 12.8 gm/dL (11.4-16.0); Lymphocytes # (A) 1.2 k/uL (1.0-4.8); Lymphocytes % (A) 30 %; MCH 32.1 pg (25.0-35.0); MCHC 33.2 g/dL (31.0-37.0); MCV 96.9 fL (80.0-100.0); Mean Platelet Volume 7.8; Monocytes # (A) 0.3 k/uL (0-1.0); Monocytes % (A) 7 %; Neutrophils # (A) 2.2 k/uL (1.3-7.7); Neutrophils % (A) 56 %; Platelet Count 119 k/uL (150-450); RBC 3.98 m/uL (3.80-5.40); RDW 12.6 % (11.5-15.5)
[2020-09-16 06:59] LABS: African American GFR (CKD) >90 (>60 ml/min/1.73 sqM); Anion Gap 7 mmol/L; Blood Urea Nitrogen 7 mg/dL (7-17); Calcium 8.2 mg/dL (8.4-10.2); Carbon Dioxide 23 mmol/L (22-30); Chloride 109 mmol/L (98-107); Glucose 100 mg/dL (74-99); Non-African American GFR(CKD) >90 (>60 ml/min/1.73 sqM); Potassium 3.6 mmol/L (3.5-5.1); Sodium 139 mmol/L (137-145)
[2020-09-16] MEDS: ASPIRIN 81 MG PO SCH (08:26)
[2020-09-16] MEDS: FUROSEMIDE 40 MG TAB PO SCH (08:27)
[2020-09-16] MEDS: ISOSORBIDE MONONITRATE ER 30 MG TAB.ER.24H PO SCH (08:27)
[2020-09-16] MEDS: amLODIPine 5 MG TAB PO SCH (08:27)
[2020-09-16] MEDS: metroNIDAZOLE 500 MG TAB PO SCH ×3 (08:27→21:30)
[2020-09-16] MEDS: METOPROLOL SUCCINATE (ER) 100 MG TAB.ER.24H PO SCH (08:28)
[2020-09-16] MEDS: HEPARIN SODIUM,PORCINE 5,000 UNIT/ML 1 ML VIAL SQ SCH ×2 (08:28→21:30)
[2020-09-16] MEDS: FLUTICASONE 50MCG/SPRAY NASAL 16GM EA NOSTRIL PRN (08:47)
--- NOTE | 2020-09-16 11:09 | P.PN ---
Subjective Progress Note Date: 09/15/20 Principal diagnosis: Colitis Patient is seen lying in bed reporting improvement in abdominal pain. No nausea or vomiting. Objective - Vital Signs Vital signs: Vital Signs Temp 98.6 F 09/15/20 08:08 Pulse 76 09/15/20 09:12 Resp 16 09/15/20 08:08 BP 121/49 09/15/20 08:08 Pulse Ox 92 L 09/15/20 08:08 Intake & Output 09/14/20 09/15/20 09/15/20 18:59 06:59 18:59 Intake Total 240 Balance 240 Intake: Oral 240 Other: # Voids 1 2 1 # Bowel Movements 1 1 - Exam On physical examination, patient appears comfortable in no apparent distress. HEAD: Normocephalic, atraumatic. EYES: No scleral icterus. No conjunctival injection. MOUTH: No lesions, tongue midline. NECK: Trachea midline, no gross abnormalities. ABDOMEN: Soft, obese, mild tenderness to palpation in the right abdomen. Bowel sounds are positive. No organomegaly. No guarding or rigidity. EXTREMITIES: No pedal edema. SKIN: No rashes, no jaundice. NEUROLOGIC: Alert and oriented x3. No focal deficits. - Labs CBC & Chem 7: 09/16/20 06:18 09/16/20 06:18 Labs: Abnormal Lab Results - Last 24 Hours (Table) 09/15/20 09/15/20 Range/Units 09:01 09:01 RBC 3.68 L (3.80-5.40) m/uL Plt Count 137 L (150-450) k/uL Potassium 3.4 L (3.5-5.1) mmol/L Chloride 108 H (98-107) mmol/L Calcium 7.9 L (8.4-10.2) mg/dL Microbiology - Last 24 Hours (Table) 09/14/20 12:54 Stool Culture - Preliminary Stool Assessment and Plan (1) Colitis Narrative/Plan: 69-year-old female with multiple medical comorbidities who presented to the hospital with complaints of abdominal pain. CT imaging performed in evaluation and significant for right-sided colitis. The patient is receiving antibiotic therapy. She believes her last colonoscopy was 5 years ago and within normal l imits except for polypectomy at that time. Unclear etiology, suspicion is for ischemic colitis with differential also including infectious process and inflammatory process less likely given the acuity of symptoms. Current Visit: Yes Status: Acute Code(s): K52.9 - NONINFECTIVE GASTROENTERITIS AND COLITIS, UNSPECIFIED SNOMED Code(s): 21140236 (2) Abdominal pain Current Visit: Yes Status: Acute Code(s): R10.9 - UNSPECIFIED ABDOMINAL PAIN SNOMED Code(s): 40324798 Plan: Supportive care Okay to advance to full liquids Continue to monitor CBC, BMP, LFTs Continue broad-spectrum antibiotic therapy with ceftriaxone and Flagyl therapy and Infectious disease and surgical service consulted to see the patient No plans for endoscopic evaluation at this time Would recommend colonoscopy in 4-6 weeks to check for healing in the setting of suspected ischemic colitis and to rule out other etiology of findings Thank you for allowing us to participate in the care of the patient we will continue to follow
--- NOTE | 2020-09-16 13:49 | P.PN ---
Subjective Progress Note Date: 09/16/20 Principal diagnosis: Colitis Patient is seen lying in bed reporting improvement in abdominal pain. No nausea or vomiting. She tolerated to full liquid diet and is asking for her diet to be advanced today. Objective - Vital Signs Vital signs: Vital Signs Temp 97.5 F L 09/16/20 08:22 Pulse 80 09/16/20 08:22 Resp 16 09/16/20 08:39 BP 164/70 09/16/20 08:22 Pulse Ox 96 09/16/20 08:22 Intake & Output 09/15/20 09/16/20 09/16/20 18:59 06:59 18:59 Intake Total 1680 240 Balance 1680 240 Intake: Oral 1680 240 Other: Voiding Method Toilet # Voids 1 2 1 # Bowel Movements 1 2 1 - Exam On physical examination, patient appears comfortable in no apparent distress. HEAD: Normocephalic, atraumatic. EYES: No scleral icterus. No conjunctival injection. MOUTH: No lesions, tongue midline. NECK: Trachea midline, no gross abnormalities. ABDOMEN: Soft, obese, mild tenderness to palpation in the right abdomen improved from previous to. Bowel sounds are positive. No organomegaly. No guarding or rigidity. EXTREMITIES: No pedal edema. SKIN: No rashes, no jaundice. NEUROLOGIC: Alert and oriented x3. No focal deficits. - Labs CBC & Chem 7: 09/16/20 06:18 09/16/20 06:18 Labs: Abnormal Lab Results - Last 24 Hours (Table) 09/15/20 09/15/20 09/16/20 Range/Units 16:32 17:05 06:18 Plt Count 119 L (150-450) k/uL D-Dimer 1.45 H (<0.60) mg/L FEU Chloride (98-107) mmol/L Glucose (74-99) mg/dL Calcium (8.4-10.2) mg/dL C-Reactive Protein 87.1 H (<10.0) mg/L 09/16/20 Range/Units 06:18 Plt Count (150-450) k/uL D-Dimer (<0.60) mg/L FEU Chloride 109 H (98-107) mmol/L Glucose 100 H (74-99) mg/dL Calcium 8.2 L (8.4-10.2) mg/dL C-Reactive Protein (<10.0) mg/L Assessment and Plan (1) Colitis Narrative/Plan: 69-year-old female with multiple medical comorbidities who presented to the hospital with complaints of abdominal pain. CT imaging performed in evaluation and significant for right-sided colitis. The patient is receiving antibiotic therapy. She believes her last colonoscopy was 5 years ago and within normal limits except for polypectomy at that time. Unclear etiology, suspicion is for ischemic colitis with differential also including infectious process and inflammatory process less likely given the acuity of symptoms. Symptomatically the patient is reporting improvement in her symptoms and is tolerated diet. Current Visit: Yes Status: Acute Code(s): K52.9 - NONINFECTIVE GASTROENTERITIS AND COLITIS, UNSPECIFIED SNOMED Code(s): 25943292 (2) Abdominal pain Current Visit: Yes Status: Acute Code(s): R10.9 - UNSPECIFIED ABDOMINAL PAIN SNOMED Code(s): 38879685 Plan: Supportive care Okay to advance low fiber diet Continue to monitor CBC, BMP, LFTs Continue broad-spectrum antibiotic therapy with ceftriaxone and Flagyl therapy and Infectious disease and surgical service consulted to see the patient No plans for endoscopic evaluation at this time Would recommend colonoscopy in 4-6 weeks to check for healing in the setting of suspected ischemic colitis and to rule out other etiology of findings Okay for discharge tomorrow if patient continues to improve clinically and tolerates diet to complete antibiotics orally Thank you for allowing us to participate in the care of the patient we will continue to follow
--- NOTE | 2020-09-16 16:27 | PN ---
PROGRESS NOTE DATE OF SERVICE: 09/16/2020 This 69-year-old woman who was admitted with acute abdominal pain with acute ascending colitis and hepatic flexure colitis is being closely monitored. The patient is on IV antibiotics. A chest CT and abdominal pelvis CAT scan did not show any acute abnormality. Persistent colitis suspected. Multiple consultants are following the patient including Gastroenterology. No chest pain. No palpitation. PHYSICAL EXAMINATION: Alert and oriented times three. Pulse 72, blood pressure 130/53. Respirations 18, temperature 97 degrees, pulse ox 94% on room air. HEENT is conjunctivae normal. NECK: No JVD. CARDIOVASCULAR: S1, S2 muffled. RESPIRATION: Breath sounds diminished in the bases. No rhonchi. No crackles. ABDOMEN: Soft, mild diffuse discomfort. LEGS are no edema. No swelling. NERVOUS SYSTEM: No focal deficits. LABORATORY DATA: WBC 4, platelets 119. D-dimer is 1.45. CRP is 87. ASSESSMENT: 1. Acute abdominal pain with acute ascending colitis and hepatic flexure colitis. 2. History of asthma. 3. Chronic obstructive pulmonary disease. 4. Elevated D-dimer. No evidence of pulmonary embolism. 5. Hypokalemia. 6. Hypertension. 7. History of pneumonia. 8. History of diverticulitis. 9. History of allergic rhinitis. 10.History of chronic back pain/degenerative joint disease. 11.Peripheral vascular disease. 12.History of cholecystectomy. 13.History of bowel resection. 14.History of hysterectomy. 15.Remote history of nicotine dependence. RECOMMENDATIONS AND DISCUSSION: I recommend to continue current medications, symptomatic treatment. Otherwise, continue with empiric antibiotics. Advance the diet. Otherwise continue the rest of the supportive care. Closely follow. Prognosis guarded. Further recommendations to follow. MMODL / IJN: [id number] /
--- NOTE | 2020-09-16 17:25 | P.PN ---
Progress Note - Text Progress Note Date: 09/16/20 The patient states he feels better. She has very minimal pain. On exam vital signs are stable. Abdomen is soft. There is minimal tenderness right side. Resolving right-sided colitis. Patiently mostly discharged home in a.m.
[2020-09-16] MEDS: ATORVASTATIN 10 MG TAB PO SCH (21:30)
--- NOTE | 2020-09-16 23:33 | PN ---
PROGRESS NOTE DATE OF SERVICE: 09/16/2020 REASON FOR FOLLOWUP: Colitis. INTERVAL COURSE: The patient is currently afebrile. The patient is feeling better. The patient's abdominal pain has improved. Denies any nausea, no vomiting. No chest pain, shortness of breath or cough. No diarrhea. PHYSICAL EXAMINATION: Blood pressure 149/63, pulse of 71, temperature 98.5. She is 94% on room air. The patient is an elderly female up in the bed in no distress. Respiratory system: Unlabored breathing, decreased intensity of breath sounds. Heart S1, S2. Regular rate and rhythm. Abdomen soft. No tenderness. LABS: Hemoglobin is 12.1, white count 4.0, BUN of 7, creatinine 0.63. DIAGNOSTIC IMPRESSION AND PLAN: Patient with abdominal pain abrupt onset with right-sided colitis, question of ischemic versus infectious. So far, culture has been negative. The patient did have MULTIPLE ANTIBIOTIC ALLERGIES, though clinically responding to the Rocephin and Flagyl to continue. Transition to oral antibiotic on discharge. Continue supportive care. MMODL / IJN: [id number] /
[2020-09-17] MEDS: PANTOPRAZOLE 40 MG TABLET PO SCH (06:41)
[2020-09-17] MEDS: LEVOTHYROXINE 75 MCG TAB PO SCH (06:41)
[2020-09-17] MEDS: METOPROLOL SUCCINATE (ER) 100 MG TAB.ER.24H PO SCH (09:50)
[2020-09-17] MEDS: FUROSEMIDE 40 MG TAB PO SCH (09:50)
[2020-09-17] MEDS: ASPIRIN 81 MG PO SCH (09:50)
[2020-09-17] MEDS: metroNIDAZOLE 500 MG TAB PO SCH ×3 (09:50→21:44)
[2020-09-17] MEDS: ISOSORBIDE MONONITRATE ER 30 MG TAB.ER.24H PO SCH (09:50)
[2020-09-17] MEDS: HEPARIN SODIUM,PORCINE 5,000 UNIT/ML 1 ML VIAL SQ SCH ×2 (09:50→21:43)
[2020-09-17] MEDS: methocarbamoL 500 MG TAB PO SCH ×2 (09:50→21:44)
[2020-09-17] MEDS: amLODIPine 5 MG TAB PO SCH (09:51)
[2020-09-17] MEDS: FLUTICASONE 50MCG/SPRAY NASAL 16GM EA NOSTRIL PRN (09:53)
--- NOTE | 2020-09-17 10:38 | P.PN ---
Subjective Progress Note Date: 09/17/20 Objective - Vital Signs Vital signs: Vital Signs Temp 98.3 F 09/17/20 00:56 Pulse 68 09/17/20 00:56 Resp 16 09/17/20 00:56 BP 134/74 09/17/20 00:56 Pulse Ox 94 L 09/17/20 00:56 Intake & Output 09/16/20 09/17/20 09/17/20 18:59 06:59 18:59 Intake Total 240 1530 Balance 240 1530 Intake: Intake, IV Titration 750 Amount Sodium Chloride 0.9% 1, 750 000 ml @ 75 mls/hr IV . [id number] [facility] Rx#:[id number] Oral 240 780 Other: # Voids 2 1 # Bowel Movements 1 1 - Labs CBC & Chem 7: 09/16/20 06:18 09/16/20 06:18 Labs: Microbiology - Last 24 Hours (Table) 09/14/20 12:54 Stool Culture - Preliminary Stool Pauly species, not albicans Assessment and Plan (1) Colitis Narrative/Plan: 69-year-old female with multiple medical comorbidities who presented to the hospital with complaints of abdominal pain. CT imaging performed in evaluation and significant for right-sided colitis. The patient is receiving antibiotic therapy. She believes her last colonoscopy was 5 years ago and within normal limits except for polypectomy at that time. Unclear etiology, suspicion is for ischemic colitis with differential also including infectious process and inflammatory process less likely given the acuity of symptoms. Symptomatically the patient is reporting improvement in her symptoms and is tolerated diet. Current Visit: Yes Status: Acute Code(s): K52.9 - NONINFECTIVE GASTROENTERITIS AND COLITIS, UNSPECIFIED SNOMED Code(s): 88919265 (2) Abdominal pain Current Visit: Yes Status: Acute Code(s): R10.9 - UNSPECIFIED ABDOMINAL PAIN SNOMED Code(s): 52846351 Plan: Supportive care Okay to advance low fiber diet Continue broad-spectrum antibiotic therapy with ceftriaxone and Flagyl therapy Infectious disease and surgical service consulted to see the patient No plans for endoscopic evaluation at this time Would recommend colonoscopy in 4-6 weeks to check for healing in the setting of suspected ischemic colitis and to rule out other etiology of findings Thank you for this consultation, she may be discharged home from a gastroenterology standpoint Dr. James Batista I agree with the dictator's note, documented as a scribe by Andreia Rivera.
[2020-09-17] MEDS: SODIUM CHLORIDE 0.9% 1,000 ML IV SCH ×2 (12:56→14:38)
--- NOTE | 2020-09-17 13:31 | P.PN ---
Subjective Progress Note Date: 09/17/20 CHIEF COMPLAINT: Abdominal pain HISTORY OF PRESENT ILLNESS: Right-sided colitis has improved. Patient denies any abdominal pain. She is tolerating diet. She denies any nausea or vomiting. S she is having bowel movements. he is afebrile. She is anticipating discharge later today. PHYSICAL EXAM: VITAL SIGNS: Reviewed. GENERAL: Well-developed in no acute distress. HEENT: No sclera icterus. Extraocular movements grossly intact. Moist buccal mucosa. Head is atraumatic, normocephalic. ABDOMEN: Soft. Nondistended. Nontender. NEUROLOGIC: Alert and oriented. Cranial nerves II through XII grossly intact. ASSESSMENT: 1. Abdominal pain secondary to colitis has improved 2. Colitis with diffuse thickening in the ascending colon and hepatic flexure noted on CAT scan 3. Prior history of cholecystectomy PLAN: -Patient is stable from surgical standpoint for discharge -No surgical intervention planned -Patient is following up with GI service for colonoscopy in 4-6 weeks Physician Program Scheduler note has been reviewed by physician. Signing provider agrees with the documented findings, assessment, and plan of care. Objective - Vital Signs Vital signs: Vital Signs Temp 97.7 F 09/17/20 08:55 Pulse 82 09/17/20 08:55 Resp 16 09/17/20 08:55 BP 157/74 09/17/20 08:55 Pulse Ox 95 09/17/20 08:55 Intake & Output 09/16/20 09/17/20 09/17/20 18:59 06:59 18:59 Intake Total 240 1530 Balance 240 1530 Intake: Intake, IV Titration 750 Amount Sodium Chloride 0.9% 1, 750 000 ml @ 75 mls/hr IV . [id number] [facility] Rx#:[id number] Oral 240 780 Other: # Voids 2 1 # Bowel Movements 1 1 - Labs CBC & Chem 7: 09/16/20 06:18 09/16/20 06:18 Labs: Microbiology - Last 24 Hours (Table) 09/14/20 12:54 Stool Culture - Preliminary Stool Pauly species, not albicans
--- NOTE | 2020-09-17 15:53 | PN ---
PROGRESS NOTE DATE OF SERVICE: 09/17/2020 This 69-year-old woman was admitted significant abdominal pain, colitis, is being closely monitored. No chest pain. No palpitations. No fever. PHYSICAL EXAMINATION: On exam, alert and oriented x3. Pulse is 82, blood pressure 157/74, respirations 16, temperature 97.7, pulse ox 95% on room air. HEENT: Conjunctivae normal. NECK: No jugular venous distention. CARDIOVASCULAR: S1, S2 muffled. RESPIRATORY: Breath sounds diminished at the bases. No rhonchi, no crackles. ABDOMEN: Soft, mild diffuse tenderness in the right side of the abdomen. NERVOUS SYSTEM: No focal deficits. LABS: Calcium is 8.2. Platelets are 119. ASSESSMENT: 1. Acute abdominal pain with acute ascending colitis and hepatic flexure colitis. 2. History of asthma. 3. Chronic obstructive pulmonary disease. 4. Thrombocytopenia. 5. Elevated D-dimer. No evidence of pulmonary embolism. 6. Hypokalemia. 7. Hypertension. 8. History of pneumonia. 9. History of diverticulitis. 10.History of allergic rhinitis. 11.History of chronic back pain, degenerative joint disease. 12.History of peripheral vascular disease. 13.History of cholecystectomy. 14.History of bowel resection. 15.History of hysterectomy. 16.Remote history of nicotine dependence. RECOMMENDATIONS AND DISCUSSION: I recommend to continue symptomatic treatment. Otherwise, at this time I recommend continue with antibiotics. Otherwise, closely monitor. Advance diet per Gastroenterology. Infectious Disease and Surgery are also following the patient closely. Prognosis guarded. Further recommendations to follow. MMODL / IJN: [id number] /
[2020-09-17 16:11] LABS: Basophils % (A) 1 %; Eosinophils # (A) 0.1 k/uL (0-0.7); Eosinophils % (A) 2 %; Lymphocytes # (A) 1.4 k/uL (1.0-4.8); Lymphocytes % (A) 29 %; MCH 32.9 pg (25.0-35.0); MCHC 34.1 g/dL (31.0-37.0); MCV 96.4 fL (80.0-100.0); Mean Platelet Volume 8.1; Monocytes # (A) 0.3 k/uL (0-1.0); Monocytes % (A) 7 %; Neutrophils # (A) 2.8 k/uL (1.3-7.7); Neutrophils % (A) 58 %; Platelet Count 173 k/uL (150-450); RBC 3.94 m/uL (3.80-5.40); RDW 12.8 % (11.5-15.5); WBC 4.7 k/uL (3.8-10.6)
[2020-09-17 16:26] LABS: African American GFR (CKD) >90 (>60 ml/min/1.73 sqM); Anion Gap 10 mmol/L; Blood Urea Nitrogen 4 mg/dL (7-17); Calcium 8.3 mg/dL (8.4-10.2); Carbon Dioxide 24 mmol/L (22-30); Chloride 108 mmol/L (98-107); Glucose 127 mg/dL (74-99); Non-African American GFR(CKD) >90 (>60 ml/min/1.73 sqM); Potassium 3.6 mmol/L (3.5-5.1); Sodium 142 mmol/L (137-145)
--- NOTE | 2020-09-17 18:56 | PN ---
PROGRESS NOTE DATE OF SERVICE: 09/17/2020 REASON FOR FOLLOWUP: Colitis. INTERVAL HISTORY: The patient is currently afebrile. The patient is feeling better. Breathing comfortably. The patient denies having any chest pain. No shortness of breath or cough. Abdominal pain is resolved. No nausea, no vomiting and no diarrhea. PHYSICAL EXAMINATION: Blood pressure 137/69, pulse of 70, temperature 97.4. She is 94% on room air. General description is an elderly female up in the bed in no distress. Respiratory system: Unlabored breathing, clear to auscultation anteriorly. Heart S1, S2. Regular rate and rhythm. ABDOMEN: Soft, no tenderness. LABS: Hemoglobin is 13.5, white count 4.7, BUN of 4, creatinine 0.62. DIAGNOSTIC IMPRESSION AND PLAN: Patient with admission to the hospital with abdominal pain with evidence of colitis, possibly ischemic versus infectious. Patient responded to Rocephin and Flagyl. Finish therapy with oral Ceftin, Flagyl and close outpatient followup. MMODL / IJN: [id number] /
[2020-09-17] MEDS: ATORVASTATIN 10 MG TAB PO SCH (21:44)
[2020-09-18] MEDS: SODIUM CHLORIDE 0.9% 1,000 ML IV SCH (02:07)
[2020-09-18] MEDS: LEVOTHYROXINE 75 MCG TAB PO SCH (06:28)
[2020-09-18 06:59] LABS: Basophils % (A) 0 %; Eosinophils # (A) 0.1 k/uL (0-0.7); Eosinophils % (A) 3 %; HCT 36.7 % (34.0-46.0); HGB 12.2 gm/dL (11.4-16.0); Lymphocytes # (A) 1.4 k/uL (1.0-4.8); Lymphocytes % (A) 36 %; MCH 32.3 pg (25.0-35.0); MCHC 33.3 g/dL (31.0-37.0); Mean Platelet Volume 8.7; Monocytes # (A) 0.3 k/uL (0-1.0); Monocytes % (A) 7 %; Neutrophils % (A) 51 %; Platelet Count 150 k/uL (150-450); RBC 3.79 m/uL (3.80-5.40); RDW 12.8 % (11.5-15.5); WBC 3.9 k/uL (3.8-10.6)
[2020-09-18 07:10] LABS: African American GFR (CKD) >90 (>60 ml/min/1.73 sqM); Anion Gap 5 mmol/L; Blood Urea Nitrogen 4 mg/dL (7-17); Calcium 8.1 mg/dL (8.4-10.2); Carbon Dioxide 25 mmol/L (22-30); Chloride 110 mmol/L (98-107); Glucose 110 mg/dL (74-99); Non-African American GFR(CKD) >90 (>60 ml/min/1.73 sqM); Potassium 3.3 mmol/L (3.5-5.1); Sodium 140 mmol/L (137-145)
[2020-09-18] MEDS: ISOSORBIDE MONONITRATE ER 30 MG TAB.ER.24H PO SCH (08:16)
[2020-09-18] MEDS: methocarbamoL 500 MG TAB PO SCH (08:16)
[2020-09-18] MEDS: ASPIRIN 81 MG PO SCH (08:16)
[2020-09-18] MEDS: PANTOPRAZOLE 40 MG TABLET PO SCH (08:16)
[2020-09-18] MEDS: FUROSEMIDE 40 MG TAB PO SCH (08:17)
[2020-09-18] MEDS: metroNIDAZOLE 500 MG TAB PO SCH (08:17)
[2020-09-18] MEDS: METOPROLOL SUCCINATE (ER) 100 MG TAB.ER.24H PO SCH (08:17)
[2020-09-18] MEDS: FLUTICASONE 50MCG/SPRAY NASAL 16GM EA NOSTRIL PRN (08:17)
[2020-09-18] MEDS: HEPARIN SODIUM,PORCINE 5,000 UNIT/ML 1 ML VIAL SQ SCH (08:17)
[2020-09-18] MEDS: amLODIPine 5 MG TAB PO SCH (08:17)
[2020-09-18 08:49] VITALS: BP 177/68; PULSE 69; RESP 16; TEMP 97.9
[2020-09-18] MEDS ORDERED: CEFDINIR 300 MG CAP PO STA (09:54)
[2020-09-18] MEDS ORDERED: POTASSIUM CHLORIDE ER 20 MEQ TAB.ER PO STA (10:44)
--- NOTE | 2020-09-18 12:45 | P.PN ---
Subjective Progress Note Date: 09/18/20 CHIEF COMPLAINT: Abdominal pain HISTORY OF PRESENT ILLNESS: Right-sided colitis has improved. Patient denies any abdominal pain. She is tolerating diet. She denies any nausea or vomiting. She is having bowel movements. She is afebrile. She is anticipating discharge later today. PHYSICAL EXAM: VITAL SIGNS: Reviewed. GENERAL: Well-developed in no acute distress. HEENT: No sclera icterus. Extraocular movements grossly intact. Moist buccal mucosa. Head is atraumatic, normocephalic. ABDOMEN: Soft. Nondistended. Nontender. NEUROLOGIC: Alert and oriented. Cranial nerves II through XII grossly intact. ASSESSMENT: 1. Abdominal pain secondary to colitis has improved 2. Colitis with diffuse thickening in the ascending colon and hepatic flexure noted on CAT scan 3. Prior history of cholecystectomy PLAN: -Patient is stable from surgical standpoint for discharge -No surgical intervention planned -Patient is following up with GI service for colonoscopy in 4-6 weeks Physician Machine Lacer note has been reviewed by physician. Signing provider agrees with the documented findings, assessment, and plan of care. Objective - Vital Signs Vital signs: Vital Signs Temp 97.9 F 09/18/20 08:00 Pulse 69 09/18/20 08:00 Resp 16 09/18/20 08:00 BP 177/68 09/18/20 08:00 Pulse Ox 96 09/18/20 08:00 Intake & Output 09/17/20 09/18/20 09/18/20 18:59 06:59 18:59 Intake Total 825 Balance 825 Intake: Intake, IV Titration 825 Amount Sodium Chloride 0.9% 1, 825 000 ml @ 75 mls/hr IV . [id number] [facility] Rx#:[id number] Other: Voiding Method Toilet # Voids 3 2 # Bowel Movements 2 - Labs CBC & Chem 7: 09/18/20 05:39 09/18/20 05:39 Labs: Abnormal Lab Results - Last 24 Hours (Table) 09/17/20 09/18/20 09/18/20 Range/Units 15:44 05:39 05:39 RBC 3.79 L (3.80-5.40) m/uL Potassium 3.3 L (3.5-5.1) mmol/L Chloride 108 H 110 H (98-107) mmol/L BUN 4 L 4 L (7-17) mg/dL Glucose 127 H 110 H (74-99) mg/dL Calcium 8.3 L 8.1 L (8.4-10.2) mg/dL Microbiology - Last 24 Hours (Table) 09/14/20 12:54 Stool Culture - Final Stool Pauly species, not albicans
--- NOTE | 2020-09-18 16:47 | P.DS ---
Providers Date of admission: 09/13/20 15:48 Expected date of discharge: 09/18/20 Attending physician: Rena Soni Consults: 09/13/20 18:06 Consult Physician Routine Consulting Provider: Krunal Jang Consult Reason/Comments: colitis? Do you want consulting provider notified?: Yes 09/14/20 09:31 Consult Physician Urgent Consulting Provider: Tommie Giron Consult Reason/Comments: Colitis with multiple abx allergies Do you want consulting provider notified?: Yes Primary care physician: [facility] Course: Final diagnosis Acute abdominal pain with acute ascending colitis and hepatic flexure colitis History of asthma Chronic obstructive pulmonary disease Thrombocytopenia Elevated d-dimer with no evidence of pulmonary embolism hypokalemia hypertension history of pneumonia History of diverticulitis history of ALLERGIC rhinitis history of chronic back pain, degenerative joint disease History of peripheral vascular disease history of cholecystectomy History of bowel resection History of hysterectomy remote history of nicotine dependence Full code Discharge disposition Patient is being discharged in a stable condition with guarded prognosis to home. Patient will follow-up with Dr. Polo upon discharge. Patient also instructed to follow-up with GI and surgery in the outpatient setting. Patient will continue with a short course of oral antibiotics in the form of Ceftin 500 mg twice daily for the next 7 days along with Flagyl 500 mg 3 times daily for the next 7 days to complete the course. Patient will also continue with tonics daily in the outpatient setting . Total time taken is greater than 35 minutes. History of present illness This is a 69-year-old female who was recently admitted with significant abdominal pain, colitis and was being closely monitored. GI and surgery following patient and patient was maintained on IV antibiotics. Patient will transition to oral antibiotics in the form of Ceftin along with Flagyl for the next 7 days to complete the course. Patient will continue with Protonix as well as the outpatient setting. Patient instructed to continue with a low fiber diet and advance slowly as tolerated. Patient will follow-up with GI in the outpatient setting. Patient's abdominal discomfort has improved and is tolerating diet with no reports of nausea or vomiting noted. Patient is requesting to go home. ReCommended repeat labs in the outpatient setting. Currently no reports of chest pain, shortness of breath, or palpitations. Patient is afebrile. No reports of nausea or vomiting and patient is tolerating diet. Guarded prognosis. On exam vital signs are stable. Cardio S1, S2 are muffled. Respiratory shows diminished breath sounds at the bases with no wheezing or rhonchi noted. Abdomen is soft and nontender. Nervous system shows no focal deficits. Please refer to medication reconciliation sheet for a list of medications. Patient Condition at Discharge: Stable Plan - Discharge Summary New Discharge Prescriptions: New Cefuroxime Axetil [Ceftin] 500 mg PO BID 7 Days #14 tab metroNIDAZOLE [Flagyl] 500 mg PO TID 7 Days #21 tab Pantoprazole [Protonix] 40 mg PO AC-BRKFST 30 Days #30 tablet.dr Continue Multivitamins, Thera [Multivitamin (formulary)] 1 tab PO DAILY Aspirin [Adult Low Dose Aspirin EC] 81 mg PO DAILY Omeprazole [PriLOSEC] 20 mg PO DAILY Fluticasone Nasal [place] [Flonase Nasal [place]] 1 spray EA NOSTRIL DAILY PRN PRN Reason: Allergy Symptoms Vits A,C,E/Lutein/Minerals [Ocuvite with Lutein Tablet] 1 tab PO DAILY Simvastatin [Zocor] 20 mg PO HS Docusate [Colace] 100 mg PO HS Levothyroxine Sodium [Synthroid] 75 mcg PO DAILY Calcium Carbonate/Vitamin D3 [Calcium 600-Vit D3 20 Mcg (800 Iu)] 1 tab PO DAILY amLODIPine [Norvasc] 5 mg PO DAILY Metoprolol Succinate (ER) [Toprol XL] 100 mg PO DAILY Isosorbide Mononitrate ER [Imdur] 30 mg PO DAILY Furosemide [Lasix] 40 mg PO DAILY Albuterol Sulfate [Ventolin HFA] 2 puff INHALATION RT-QID PRN PRN Reason: Shortness Of Breath methocarbamoL [Robaxin] 500 mg PO BID Discharge Medication List Aspirin [Adult Low Dose Aspirin EC] 81 mg PO DAILY 04/21/16 [History] Fluticasone Nasal [place] [Flonase Nasal [place]] 1 spray EA NOSTRIL DAILY PRN 04/21/16 [History] Multivitamins, Thera [Multivitamin (formulary)] 1 tab PO DAILY 04/21/16 [History] Omeprazole [PriLOSEC] 20 mg PO DAILY 04/21/16 [History] Vits A,C,E/Lutein/Minerals [Ocuvite with Lutein Tablet] 1 tab PO DAILY 04/21/16 [History] Albuterol Sulfate [Ventolin HFA] 2 puff INHALATION RT-QID PRN 09/13/20 [History] Calcium Carbonate/Vitamin D3 [Calcium 600-Vit D3 20 Mcg (800 Iu)] 1 tab PO DAILY 09/13/20 [History] Docusate [Colace] 100 mg PO HS 09/13/20 [History] Furosemide [Lasix] 40 mg PO DAILY 09/13/20 [History] Isosorbide Mononitrate ER [Imdur] 30 mg PO DAILY 09/13/20 [History] Levothyroxine Sodium [Synthroid] 75 mcg PO DAILY 09/13/20 [History] Metoprolol Succinate (ER) [Toprol XL] 100 mg PO DAILY 09/13/20 [History] Simvastatin [Zocor] 20 mg PO HS 09/13/20 [History] amLODIPine [Norvasc] 5 mg PO DAILY 09/13/20 [History] methocarbamoL [Robaxin] 500 mg PO BID 09/13/20 [History] Cefuroxime Axetil [Ceftin] 500 mg PO BID 7 Days #14 tab 09/18/20 [Rx] Pantoprazole [Protonix] 40 mg PO AC-BRKFST 30 Days #30 tablet. 09/18/20 [Rx] metroNIDAZOLE [Flagyl] 500 mg PO TID 7 Days #21 tab 09/18/20 [Rx] Follow up Appointment(s)/Referral(s): Jose Polo MD [Primary Care Provider] - 1-2 days (thursday at 10:30am at [facility]) Luis A Loo MD [STAFF PHYSICIAN] - 4 Weeks (needs colonoscopy in 4-6 weeks October 22...hospital will call day before with time. Should be hearing from Dr. Loo's office regarding prep.) Krunal Jang MD [STAFF PHYSICIAN] - 1 Week (september 27 at 2:10pm) Ambulatory/Diagnostic Orders: Complete Blood Count w/diff [LAB.AMB] Time Frame: 2 Days, Location: None Selected Patient Instructions/Handouts: Low Fiber Diet (DC) Activity/Diet/Wound Care/Special Instructions: Activity Limited until follow-up Follow up with primary care provider upon discharge Follow-up with GI outpatient Follow-up with surgery outpatient Continue low fiber diet Continue with antibiotics until finished Repeat labs in 2-3 days Discharge Disposition: HOME SELF-CARE
--- NOTE | 2020-09-18 23:14 | PN ---
PROGRESS NOTE DATE OF SERVICE: 09/18/2020 REASON FOR FOLLOWUP: Colitis. INTERVAL HISTORY: The patient was seen on rounds this morning. The patient has been afebrile. The patient is feeling better, breathing comfortably. Denies having any chest pain or shortness of breath or cough. Abdominal pain has resolved. No nausea, no vomiting. No diarrhea. PHYSICAL EXAMINATION: Her blood pressure is 177/68 with a pulse of 69, temperature 97.9. She is 96% on room air. General description is an elderly female up in the room in no distress. RESPIRATORY SYSTEM: Unlabored breathing. Clear to auscultation anteriorly. HEART: S1, S2. Regular rate and rhythm. ABDOMEN: Soft. No tenderness. LABS: Hemoglobin is 12.1, white count 3.9, creatinine 0.63. DIAGNOSTIC IMPRESSION AND PLAN: Patient with colitis, possible ischemic versus infectious. Culture has been negative. Patient has responded to Rocephin and Flagyl. Finish therapy with oral Ceftin and Flagyl. Prescription sent to the pharmacy. Close outpatient followup. MMODL / IJN: [id number] /
== END 2020-09-18 13:35 | disposition home or self-care (01) ==
LOC: EC 14:44 → 6PED 15:47 → OBSVTOIN 15:48 → INTOOBSV 15:48 → 6PED 15:59 → UNDODISIN 09-18 13:35
PROVIDERS: ADMIT Hospitalist; ATTEND Hospitalist
DX: K52.9 Noninfective gastroenteritis and colitis, unspecified (principal); J44.9 Chronic obstructive pulmonary disease, unspecified; D69.6 Thrombocytopenia, unspecified; R79.89 Other specified abnormal findings of blood chemistry; E87.6 Hypokalemia; I10 Essential (primary) hypertension; Z87.01 Personal history of pneumonia (recurrent); K57.30 Diverticulosis of large intestine without perforation or abscess without bleeding; J30.9 Allergic rhinitis, unspecified; G89.29 Other chronic pain; M54.9 Dorsalgia, unspecified; M19.90 Unspecified osteoarthritis, unspecified site; I73.9 Peripheral vascular disease, unspecified; Z90.49 Acquired absence of other specified parts of digestive tract; Z87.19 Personal history of other diseases of the digestive system; Z90.710 Acquired absence of both cervix and uterus; Z87.891 Personal history of nicotine dependence; E66.9 Obesity, unspecified; Z68.38 Body mass index [BMI] 38.0-38.9, adult; G62.9 Polyneuropathy, unspecified; D72.829 Elevated white blood cell count, unspecified; R11.2 Nausea with vomiting, unspecified; Z20.822 Contact with and (suspected) exposure to COVID-19; Z87.42 Personal history of other diseases of the female genital tract; Z79.82 Long term (current) use of aspirin; Z79.899 Other long term (current) drug therapy; Z79.890 Hormone replacement therapy; Z88.2 Allergy status to sulfonamides; Z88.1 Allergy status to other antibiotic agents; Z91.011 Allergy to milk products; Z98.890 Other specified postprocedural states; Z80.0 Family history of malignant neoplasm of digestive organs; Z80.8 Family history of malignant neoplasm of other organs or systems; Z82.49 Family history of ischemic heart disease and other diseases of the circulatory system; Z82.69 Family history of other diseases of the musculoskeletal system and connective tissue
CPT/HCPCS: 96361 ×4; 96365; 96366 ×2; 96367; 96372 ×6; 96375 ×3; 96376; 99285; 94640; 85379; 80053; 80048 ×5; 85652; 83605; 83690; 85025 ×5; 86140; 81001; 87324; 87045; 87046; 87635; 71045; 71275; 74177; G0378 ×6; J2543; J2270 ×2; J1200; J1644 ×6; J2405; J0696 ×4; C9113; J1170; Q9967; 96374

== ENCOUNTER 2020-10-22 08:36 | Day surgery (SDC) | payer MEDICARE ==
[2020-10-18 10:20] VITALS: BMI 38.0
[~2020-10-22 08:36] MED LIST: LACTATED RINGERS 1,000 ML IV SCH; LIDOCAINE 1% (10MG/ML) FOR IV START INTRADERMA PRN
[2020-10-22 08:58] VITALS: TEMP 97.4
[2020-10-22] MEDS ORDERED: LACTATED RINGERS 1,000 ML IV ONE (08:58)
[2020-10-22] MEDS ORDERED: PROPOFOL 10 MG/ML 20 ML VIAL IV ONE (10:25)
--- NOTE | 2020-10-22 11:09 | P.PCN ---
Date of Procedure: 10/22/20 Description of Procedure: BRIEF HISTORY: Patient is a 69-year-old female presenting for outpatient colonoscopy for evaluation of colitis. Patient was hospitalized in September 2020 with findings on computed tomography scan of right-sided colitis. Suspicion was for ischemic or infectious etiology at that time. Patient was treated with supportive care and antibiotic therapy and reports improvement in symptoms. She reports last colonoscopy 5-10 years ago. She has been doing well since discharge from the hospital. PROCEDURE PERFORMED: Colonoscopy aborted/failed. PREOPERATIVE DIAGNOSIS: Colitis, patient reports last colonoscopy 5-10 years ago. ESTIMATED BLOOD LOSS: Minimal. IV sedation per Anesthesia. PROCEDURE: After informed consent was obtained, the patient, was brought into the endoscopy unit. IV sedation was administered by Anesthesia under continuous monitoring. Digital rectal examination was normal. Initially the Olympus CF-190 flexible video colonoscope was then inserted in the rectum, gradually advanced into the sigmoid colon at which time diverticula and a tortuous fixed sigmoid colon with some associated sigmoid stricturing was noted. At this time the Olympus CF190 possible video colonoscope was exchanged for a pediatric colonoscope. Again the colonoscope was inserted into the rectum and gradually advanced to the sigmoid colon. Multiple attempts to try to traverse of the fixed sigmoid were unsuccessful, including with the aid of external pressure and repositioning of the patient. At this time the procedure was aborted. Retroflexion in the rectum with internal hemorrhoids noted. The patient tolerated the procedure well. IMPRESSION: Failed/aborted colonoscopy secondary to a fixed and tortuous colon with associated sigmoid stricture in the setting of diverticulosis. Internal hemorrhoids. RECOMMENDATIONS: Findings of this examination were discussed with the patient and her . Okay to resume diet. Okay to resume medications. At this time the recommendation is that the patient undergo a CT colonoscopy or x-ray barium enema in the next 2-3 weeks for follow-up of recent hospitalization of colitis.
[2020-10-22 11:14] VITALS: RESP 16
[2020-10-22 11:35] VITALS: BP 137/70; PULSE 65
== END 2020-10-22 12:00 | disposition home or self-care (01) ==
LOC: ORWHC2ENDO 08:36
PROVIDERS: ATTEND Internal Medicine
DX: K57.30 Diverticulosis of large intestine without perforation or abscess without bleeding (principal); K64.8 Other hemorrhoids; E78.5 Hyperlipidemia, unspecified; I10 Essential (primary) hypertension; Z87.891 Personal history of nicotine dependence; Q43.8 Other specified congenital malformations of intestine; Z90.49 Acquired absence of other specified parts of digestive tract; Z98.890 Other specified postprocedural states; Z98.42 Cataract extraction status, left eye; Z98.41 Cataract extraction status, right eye; J44.9 Chronic obstructive pulmonary disease, unspecified; Z97.2 Presence of dental prosthetic device (complete) (partial); Z79.82 Long term (current) use of aspirin; Z79.890 Hormone replacement therapy; Z79.899 Other long term (current) drug therapy; Z88.0 Allergy status to penicillin; Z88.2 Allergy status to sulfonamides; Z88.1 Allergy status to other antibiotic agents; Z91.011 Allergy to milk products
CPT/HCPCS: 45330; J2704; 45378